=== PATIENT | female | born 2005 | race Caucasian/White ===

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

== ENCOUNTER → 2025-02-04 | Outpatient (CLI) | payer BC, OTHER | END | disposition home or self-care (01) | LOC: D 15:03 | PROVIDERS: ATTEND Nurse Practitioner Family | DX: R73.03 Prediabetes (principal); K76.3 Infarction of liver; E78.1 Pure hyperglyceridemia; E66.01 Morbid (severe) obesity due to excess calories ==